=== PATIENT | female | born 1975 | race Caucasian/White ===

== ENCOUNTER 2017-01-20 21:05 | Emergency (ER) | payer BC ==
[2017-01-20 22:31] VITALS: BP 120/81
== END 2017-01-20 22:31 | disposition home or self-care (01) ==
LOC: ED 21:05
DX: S52.125A Nondisplaced fracture of head of left radius, initial encounter for closed fracture (principal); W17.89XA Other fall from one level to another, initial encounter; Y93.21 Activity, ice skating; Y92.89 Other specified places as the place of occurrence of the external cause; Y99.8 Other external cause status